=== PATIENT | female | born 1965 | race Caucasian/White ===

== ENCOUNTER 2018-12-15 19:23 | Emergency (ER) | payer OTHER ==
[~2018-12-15] VITALS: Ht 165.1 cm; Wt 61.3 kg
--- NOTE | 2018-12-15 20:36 | NUR ---
PT PRESENTS TO ED WITH C/O DIARRHEA STARTING 4/2 AFTER STARTING ANTIBIOTICS FOR A SINUS INFECTION. PT ALSO NOTES CHEST CONGESTION, HEADACHE AND NAUSEA FOR PAST SEVERAL DAYS. NEURO INTACT. ALL MONTIORS IN PLACE. EKG COMPLETED BY EDT. CXR RESULTED, AWAITING FURTHER ORDERS AT THIS TIME.
[2018-12-15 21:23] VITALS: BP 124/78
--- NOTE | 2018-12-15 21:24 | NUR ---
PT GIVEN DC INSTRUCTIONS. PT A&O, RESPS EVEN AND UNLABORED. PT DID NOT HAVE ANY DIARRHEA DURING THIS ED VISIT. PT HAS NO COMPLAINT AT DC. PT AMB TO DC DESK WITH STEADY GAIT, NADN AT DC. PT ACCOMPANIED BY AT DC.
== END 2018-12-15 21:25 | disposition home or self-care (01) ==
LOC: ED 21:14
DX: J01.00 Acute maxillary sinusitis, unspecified (principal); E10.9 Type 1 diabetes mellitus without complications
CPT/HCPCS: 71046; 93005; 99283

== ENCOUNTER 2020-07-26 09:38 | Inpatient (IN) | payer OTHER ==
[~2020-07-26] VITALS: Ht 165.1 cm; Wt 61.2 kg
[2020-07-26] MEDS ORDERED: KETOROLAC 30 MG/1 ML ONE (09:49)
[2020-07-26] MEDS ORDERED: ONDANSETRON 2MG/ML, 2ML IVPush ONE (10:00)
[2020-07-26] MEDS ORDERED: KETOROLAC 30 MG/1 ML IVPush ONE (10:00)
[2020-07-26] MEDS ORDERED: MORPHINE SULFATE 4 MG/ML, 1ML IVPush PRN (10:00)
[2020-07-26 10:20] LABS: BASOPHILS % (AUTO) 1 % (0-1); EOSINOPHILS % (AUTO) 2 % (1-7); LYMPHOCYTES % (AUTO) 31 % (22-44); MEAN CORPUSCULAR HEMOGLOBIN 23.5 pg (27.0-34.8); MEAN CORPUSCULAR HGB CONC 31.4 g/dL (32.4-35.8); MEAN PLATELET VOLUME 7.4 fL (7.4-10.4); MONOCYTES % (AUTO) 12 % (2-9); NEUTROPHILS % (AUTO) 54 % (42-75); PLATELET COUNT 403 x10^3/uL (130-400); RED BLOOD COUNT 4.79 x10^6/uL (3.82-5.3); RED CELL DISTRIBUTION WIDTH 15.8 % (9.6-15.2)
[2020-07-26 10:31] LABS: ALANINE AMINOTRANSFERASE 18 U/L (12-78); ALBUMIN 3.9 g/dL (3.4-5.0); ANION GAP 6 mmol/L (5-15); CALCIUM 9.2 mg/dL (8.5-10.1); CHLORIDE 105 mmol/L (98-107); CREATININE 0.78 mg/dL (0.55-1.02)
[2020-07-26 10:35] LABS: ALKALINE PHOSPHATASE 68 U/L (45-117); BILIRUBIN,TOTAL 0.5 mg/dL (0.2-1.0); TOTAL PROTEIN 7.5 g/dL (6.4-8.2); TROPONIN I 0.038 ng/mL (0.000-0.045)
[2020-07-26 10:49] LABS: MD NO
--- NOTE | 2020-07-26 10:53 | NUR ---
report to [facility]. pt reports to relief from toradol but declines morphine. trop neg. cbc pending. nsr on monitor. as
[2020-07-26] MEDS ORDERED: NITROGLYCERIN OINT 2%, 1GM TP PRN (12:30)
[2020-07-26] MEDS ORDERED: NITROGLYCERIN OINT 2%, 1GM TP ONE (12:39)
--- NOTE | 2020-07-26 12:41 | NUR ---
PT DECLINES NITRO AND PAIN MEDICATIONS AT THIS TIME, REPORTS CP HAS SUBSIDED AND SHE'S FEELING BETTER.
--- NOTE | 2020-07-26 13:22 | NUR ---
REPORT GIVEN TO SONY MULLIGAN.
[2020-07-26 13:47] VITALS: BP 127/79
[2020-07-26] MEDS ORDERED: ENOXAPARIN 40 MG/0.4 ML SQ SCH (14:00)
[2020-07-26] MEDS ORDERED: NITROGLYCERIN 0.4 MG BOTTLE (25 TABS) SL PRN (14:00)
[2020-07-26] MEDS ORDERED: NITROGLYCERIN 0.4 MG/SPRAY SL PRN (14:00)
[2020-07-26] MEDS ORDERED: ASPIRIN 325 MG TABLET EC PO ONE (14:00)
[2020-07-26] MEDS ORDERED: LEVO75TA PO (16:01)
[2020-07-26] MEDS ORDERED: LEVO50TA PO (16:01)
[2020-07-26] MEDS ORDERED: HEPARIN 5,000 UNITS/ML, 1ML IV ONE (17:00)
[2020-07-26] MEDS: HEPARIN 25,000 UNITS/250ML PMX 250 ML IV PRN (17:04)
[2020-07-26] MEDS: ATORVASTATIN 80 MG TABLET PO SCH (17:06)
[2020-07-26 19:52] VITALS: BP 104/66
[2020-07-26] MEDS ORDERED: FOLI0.8T2 PO (21:22)
[2020-07-26] MEDS ORDERED: CHOL10003 PO (21:22)
[2020-07-26] MEDS: SODIUM CHLORIDE FLUSH 10ML SYR IVF SCH (21:23)
[2020-07-27 01:35] VITALS: BP 111/64
[2020-07-27 05:17] LABS: CHOL/HDL RATIO 1.7; LDL/HDL RATIO 0.6 (0.5-3.0)
[2020-07-27] MEDS: ASPIRIN 325 MG TABLET EC PO SCH (05:18)
[2020-07-27] MEDS: HEPARIN 5,000 UNITS/ML, 1ML IV PRN (06:19)
[2020-07-27 06:48] VITALS: BP 109/69
[2020-07-27 07:33] LABS: ANION GAP 7 mmol/L (5-15); CALCIUM 8.9 mg/dL (8.5-10.1); CHLORIDE 108 mmol/L (98-107); CREATININE 0.68 mg/dL (0.55-1.02)
[2020-07-27 07:40] LABS: INTERNATIONAL NORMALIZED RATIO 1.19 (0.93-1.1); PROTHROMBIN TIME 12.6 Seconds (9.6-11.5)
[2020-07-27] MEDS ORDERED: LEVOTHYROXINE 75 MCG TABLET PO SCH (08:30)
[2020-07-27] MEDS: SODIUM CHLORIDE FLUSH 10ML SYR IVF SCH ×2 (08:48→20:49)
[2020-07-27] MEDS ORDERED: LEVOTHYROXINE 50 MCG TABLET PO SCH (09:00)
[2020-07-27 12:39] VITALS: BP 107/68
[2020-07-27 19:01] VITALS: BP 101/49
[2020-07-27] MEDS: ATORVASTATIN 80 MG TABLET PO SCH (20:49)
[2020-07-27] MEDS: HEPARIN 25,000 UNITS/250ML PMX 250 ML IV PRN (21:41)
[2020-07-28 00:18] VITALS: BP 95/61
[2020-07-28 05:17] LABS: ANION GAP 4 mmol/L (5-15); CHLORIDE 108 mmol/L (98-107); CREATININE 0.77 mg/dL (0.55-1.02)
[2020-07-28] MEDS: ASPIRIN 325 MG TABLET EC PO SCH (05:42)
[2020-07-28] MEDS ORDERED: LEVOTHYROXINE 75 MCG TABLET PO SCH (06:00)
[2020-07-28] MEDS: HEPARIN 5,000 UNITS/ML, 1ML IV PRN (06:31)
[2020-07-28 07:11] VITALS: BP 99/63
[2020-07-28] MEDS: SODIUM CHLORIDE FLUSH 10ML SYR IVF SCH (09:00)
[2020-07-28] MEDS ORDERED: SODIUM CHLORIDE 0.9% 1,000 ML IV SCH ×2 (11:00→12:30)
[2020-07-28] MEDS ORDERED: HEPARIN 1,000 UNITS/ML, 10ML ONE (11:41)
[2020-07-28] MEDS ORDERED: FENTANYL PF 100 MCG/2ML ONE (11:41)
[2020-07-28] MEDS ORDERED: MIDAZOLAM 1 MG/ML, 2ML ONE (11:41)
[2020-07-28] MEDS ORDERED: VERAPAMIL 2.5 MG/ML, 2ML ONE (11:41)
[2020-07-28 13:10] VITALS: BP 102/65
[2020-07-28] MEDS ORDERED: CLOPIDOGREL 75 MG TABLET PO SCH (14:30)
[2020-07-28] MEDS ORDERED: ATOR40TA78 PO (14:42)
[2020-07-28] MEDS ORDERED: NITR0.4T28 SL (14:42)
[2020-07-28] MEDS ORDERED: ASPI81TA45 PO (14:42)
[2020-07-29] MEDS ORDERED: ASPIRIN 81 MG TABLET EC PO SCH (06:00)
[2020-07-30] MEDS ORDERED: LEVOTHYROXINE 50 MCG TABLET PO SCH (06:00)
== END 2020-07-28 16:40 | disposition home or self-care (01) | DRG 282 ==
LOC: ED 10:42 → EDIP 13:14 → INTOOBSV 13:14 → 5SO 13:43 → OBSVTOIN 18:02 → DCLOUNGE 07-28 16:31
PROVIDERS: ADMIT Internal Medicine; ATTEND Family Medicine
PROC: 4A023N7 Measurement of Cardiac Sampling and Pressure, Left Heart, Percutaneous Approach (ICD-10-PCS; principal; 2020-07-28)
PROC: B2111ZZ Fluoroscopy of Multiple Coronary Arteries using Low Osmolar Contrast (ICD-10-PCS; 2020-07-28)
DX: I21.4 Non-ST elevation (NSTEMI) myocardial infarction (principal); D50.9 Iron deficiency anemia, unspecified; E03.9 Hypothyroidism, unspecified; E10.51 Type 1 diabetes mellitus with diabetic peripheral angiopathy without gangrene; E78.5 Hyperlipidemia, unspecified; I25.10 Atherosclerotic heart disease of native coronary artery without angina pectoris; K21.9 Gastro-esophageal reflux disease without esophagitis; Z96.41 Presence of insulin pump (external) (internal); Z79.4 Long term (current) use of insulin; Z79.82 Long term (current) use of aspirin; Z86.718 Personal history of other venous thrombosis and embolism; Z87.891 Personal history of nicotine dependence; Z79.01 Long term (current) use of anticoagulants; Z79.899 Other long term (current) drug therapy; Z79.891 Long term (current) use of opiate analgesic
CPT/HCPCS: 36415; 71045; 80048; 80053; 80061; 83690; 83735; 84484; 85025; 85379; 85520; 85610; 93005; 93306; 93458; 99156; C1769; C1894; G0378; J1644; J1885; J2250; J3010; J7030; Q9967